=== PATIENT | female | born 1960 | race Caucasian/White ===

== ENCOUNTER 2016-08-19 05:41 | Emergency (ER) | payer OTHER ==
[~2016-08-19] VITALS: Ht 154.9 cm; Wt 43.6 kg
[~2016-08-19 05:41] MED LIST: Berocca Plus PO; Biaxin PO
[2016-08-19] MEDS ORDERED: FLEXERIL10 MG PO (09:10)
[2016-08-19] MEDS ORDERED: TYLENOL WITH C1 EACH PO (09:10)
[2016-08-19 09:44] VITALS: BP 166/96
== END 2016-08-19 09:45 | disposition home or self-care (01) ==
LOC: EME 05:41
DX: S29.012A Strain of muscle and tendon of back wall of thorax, initial encounter (principal); F17.200 Nicotine dependence, unspecified, uncomplicated; X50.9XXA Other and unspecified overexertion or strenuous movements or postures, initial encounter
CPT/HCPCS: 99281; 99284; J1885